=== PATIENT | female | born 1955 | race Two or more races ===

== ENCOUNTER → 2018-09-16 | Outpatient (CLI) | payer OTHER | END | disposition home or self-care (01) | LOC: NUCLEAR 11:00 | DX: I87.2 Venous insufficiency (chronic) (peripheral) (principal) ==

== ENCOUNTER → 2018-09-25 | Outpatient (CLI) | payer OTHER | END | disposition home or self-care (01) | LOC: NUCLEAR 11:00 | DX: I73.9 Peripheral vascular disease, unspecified (principal) ==

== ENCOUNTER 2021-10-06 12:44 | Emergency (ER) | payer OTHER ==
[~2021-10-06] VITALS: Ht 165.1 cm; Wt 70.8 kg
[2021-10-06] MEDS ORDERED: PROTONIX40 MG PO (12:54)
[2021-10-06] MEDS ORDERED: AVAPRO150 MG PO (12:54)
== END 2021-10-06 14:38 | disposition home or self-care (01) ==
LOC: ER 12:44
DX: R13.19 Other dysphagia (principal); Z88.2 Allergy status to sulfonamides

== ENCOUNTER 2023-10-24 11:22 | Emergency (ER) | payer OTHER ==
[~2023-10-24] VITALS: Ht 160 cm; Wt 71.7 kg
[~2023-10-24 11:22] MED LIST: AVAPRO150 MG PO; PROTONIX40 MG PO
[2023-10-24 14:41] LABS: HEMATOCRIT 40.5 % (36.0-45.00); HEMOGLOBIN 13.8 g/dL (12.0-15.00); MEAN CELL VOLUME 92.1 fL (80.00-100.00); MEAN CORPUSCULAR HEMOGLOBIN 31.5 pg (27.00-32.0); MEAN CORPUSCULAR HGB CONC 34.1 g/dl (32.0-36.0); PLATELET COUNT 236 K/uL (150-450); RED CELL DISTRIBUTION WIDTH 13.2 % (11.5-14.5)
[2023-10-24 15:01] LABS: CALCIUM 9.7 mg/dL (8.5-10.1); CREATININE SERUM 0.7 mg/dL (0.55-1.02); GFR 83.72; POTASSIUM 3.42 mEq/L (3.5-5.1)
[2023-10-24 15:25] LABS: PH,URINE 6.5 (5.0-8.0); URINE APPEARANCE Clear; URINE BILIRRUBIN Negative (NEGATIVE); URINE BLOOD Negative; URINE COLOR Yellow; URINE GLUCOSE Negative (NEGATIVE); URINE LEUKOCYTE Negative; URINE NITRATE Negative; URINE PROTEIN Negative (NEGATIVE); URINE UROBILINOGEN 0.2 E.U./dl
[2023-10-24 15:26] LABS: URINE EPITHELIAL CELLS 7.9 uL (0.0-38.8); URINE RBC 7.6 uL (0.0-20.8); URINE WBC 1.8 uL (0.0-23.2)
[2023-10-24] MEDS ORDERED: METRONIDAZOLE500 MG PO (17:54)
[2023-10-24] MEDS ORDERED: LEVSIN/SL0.125 MG SL (17:54)
[2023-10-24] MEDS ORDERED: CIPRO500 MG PO (17:54)
[2023-10-24] MEDS ORDERED: PEPCID AC20 MG PO (17:54)
[2023-10-24] MEDS ORDERED: PIPERACILLIN/TAZOBACTAM SODIUM 3.375 GM VIAL IV ONE (18:00)
[2023-10-24] MEDS ORDERED: FAMOTIDINE/PF 20 MG/2 ML VIAL IV ONE (18:00)
== END 2023-10-24 19:14 | disposition home or self-care (01) ==
LOC: ER 11:22
PROVIDERS: Emergency Medicine
DX: K57.32 Diverticulitis of large intestine without perforation or abscess without bleeding (principal); R10.9 Unspecified abdominal pain; Z88.2 Allergy status to sulfonamides; I10 Essential (primary) hypertension
CPT/HCPCS: 36415; 74177; 96365; 99284; J2543; J3490